=== PATIENT | female | born 1930 | race Caucasian/White ===

== ENCOUNTER → 2016-10-08 | Outpatient (CLI) | payer MEDICARE ==
[~2016-10-08] MED LIST: AMIODARONE 200200 MG PO; ASPIRIN 81MG TA81 MG PO; B-12500 MC1 PO; BACTRIM DS 8001 TA1 PO; BRILINTA90 MG PO; CEFTRIAXONE 1 GM1 GM IV; COLCHICINE0.6 M4 PO; D-20001 TAB PO; FUROSEMIDE 20MG20 MG PO; GABAPENTIN100 M1 PO; HYDRALAZINE HCL25 M1 PO; LISINOPRIL20 MG PO; METOPROLOL TAR100 MG PO; RISPERIDONE0.5 M2 PO
[2016-10-08 13:32] LABS: LYMPH # 0.9 K/mm3 (0.7-4.5); LYMPH % 11.5 % (10-50.0)
[2016-10-08 14:28] LABS: BUN 34 mg/dL (7-18); FREE THYROXIN INDEX 8.3 ug/dl (5.93-13.13)
[2016-10-08 14:33] LABS: GFR (ESTIMATED) 39 ML/MIN (59-)
== END ==
LOC: CARL-LAB 11:30
PROVIDERS: Internal Medicine Adolescent Medicine
DX: F51.01 Primary insomnia (principal); I25.10 Atherosclerotic heart disease of native coronary artery without angina pectoris; I10 Essential (primary) hypertension

== ENCOUNTER 2016-10-10 12:06 | Inpatient (IN) | payer MEDICARE ==
[~2016-10-10] VITALS: Ht 149.9 cm; Wt 49.0 kg
[~2016-10-10 12:06] MED LIST changes: -CEFTRIAXONE 1 GM1 GM IV; -RISPERIDONE0.5 M2 PO
[2016-10-10 14:49] VITALS: BP 146/93
[2016-10-10 15:12] VITALS: BP 146/93
--- NOTE | 2016-10-10 15:56 | RADIOLOGY REPORT PS360 ---
CHEST-PORTABLE HISTORY: Amiodarone therapy, history of pacemaker ms changes ORDERING PHYSICIAN: Meliton Camejo MD PATIENT AGE: 86 years COMPARISON: 10/01/2016 FINDINGS: Mild cardiomegaly without failure. Cardiac pacemaker device is in good position. Hiatal hernia. No lobar consolidation or collapse. No acute bony anomalies. IMPRESSION: As above, no acute finding.
--- NOTE | 2016-10-10 17:19 | RADIOLOGY REPORT PS360 ---
CT HEAD W/O CONTRAST HISTORY: Confusion, altered mental status MS CHANGES ORDERING PHYSICIAN: Meliton Camejo MD PATIENT AGE: 86 years COMPARISON: 09/30/2016 TECHNIQUE: Axial images obtained without contrast. Brain and bone windows reviewed. FINDINGS: No midline shift, mass effect, intracranial hemorrhage, hydrocephalus, or extra-axial fluid collection is evident. There is generalized atrophy with hypoattenuation in the periventricular and subcortical region consistent with microangiopathic gliotic change. 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 No acute intracranial hemorrhage. No significant change The calvarium has an unremarkable appearance. No mastoid effusion. Moderate mucosal thickening sphenoid sinus. IMPRESSION: 1. No change with no intracranial pathology. 2.. Atrophy with chronic ischemic change. 3. Sphenoid sinus disease
[2016-10-10 20:00] VITALS: BP 128/59
--- NOTE | 2016-10-10 21:58 | HISTORY AND PHYSICAL REPORT ---
Demographics: Admit date: 10/10/16 Chief complaint: mental status change/confusion PRIMARY DIAGNOSIS: UTI- FAILED OUTPATIENT Allergies: Coded Allergies: erythromycin base (09/30/16) History of present illness: History of present illness: 86-year-old white female with recent hospitalization for significant orthopnea/ syncope episodes, turned out to have coronary atherosclerosis and received stent. Also was found to have urinary tract infection. Sent home on medications for [id number] anticoagulation therapy. Unfortunately over the past couple of days she's had increasing weakness, problems with confusion and accelerated dementia. Family called me today, readmitted to hospital for IV therapy for failed UTI outpatient therapy and hypokalemia. Past medical history: Family HX Diabetes No CAD No Hypertension Yes Hyperlipidemia No Cancer Yes TB No Immunization HX DT/Tetanus < 1 Year Ago Flu 2015-FSN Pneumonia Received In Past TB Test in last year No General CAD? No Angina: Yes CA: No Hypertension? Yes Hyperlipidemia? Yes CHF? No DVT? No PE? No COPD? No Asthma? No Anemia? No GERD? No Gastric ulcers? No GI Bleed? No Hernia? Yes Thyroid Problems? No Hypothyroidism? No CVA? No Seizures? No Diabetes? No Renal Insuffiency? No UTI? Yes Stones? No BPH? No GB Disease: No Nephritic Syndrome? No Asplenia? No Hepatitis? No Sickle Cell Disease? No Arthritis? No Migraines? No Cataracts? Yes Glaucoma? No MRSA? No HIV? No TB? No Anxiety? No Depression? No Cancer? No More? 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 No Patien't marital status is Patient's support system is excellent Review of systems: Constitutional malaise, weakness. No: fever. Respiratory No: no symptoms reported. Cardiovascular No edema, No palpitations, No syncope Gastrointestinal/Abdominal poor appetite, poor fluid intake Genitourinary see HPI. Musculoskeletal joint swelling. Neurological Yes: weakness. Exam: Lab data for last 24 hours: Laboratory Tests 10/10/16 1520: Magnesium 1.8 10/10/16 1520: Sodium 145, Potassium 2.9 *L, Chloride 105, Carbon Dioxide 33 H, BUN 26 H, Creatinine 1.1 H, Estimated Creat Clear 27 L, Estimated GFR (MDRD) 47 L, Glucose 108 H, Calcium 9.4, Total Bilirubin 1.0, AST 24, ALT 30, Alkaline Phosphatase 67, Total Protein 7.2, Albumin 3.6, Globulin 3.6 H, Albumin/ Globulin Ratio 1.0 L Admission vital signs: 1ST Vital Signs Result Date Time Pulse Ox 93 10/10 1449 O2 Delivery ROOM AIR 10/10 1449 B/P 146/93 10/10 1449 Temp 97.4 10/10 1449 Pulse 72 10/10 1449 Resp 18 10/10 1449 Exam General appearance: alert Eyes: anicteric Neck: non-tender, no JVD Cardiovascular: no JVD, normal sinus rhythm Respiratory: clear to auscultation ABD: soft, no tenderness Extremities: full range of motion, normal capillary refill (but very weak) Skin: lesions (brusinng from cath, IV) Additional information: The patient is pleasant, disoriented, only oriented to person, does know she is in the hospital. Plan: Problem List 1. UTI (urinary tract infection) 2. Hypokalemia 3. Coronary atherosclerosis 4. Mental status change Plan: plan will be to admit to hospital, IV antibiotics, replace potassium, physical therapy evaluation. at [id number]
[2016-10-11] VITALS (8 sets, daily range): BP systolic 102–160; BP diastolic 51–87
[2016-10-11 06:37] LABS: LYMPH % 10.4 % (10-50.0)
[2016-10-11 06:49] LABS: HEMOGLOBIN 12.4 g/dL (12.2-16.2)
--- NOTE | 2016-10-11 07:01 | PHARMACY CLINIC NOTE ---
Patient Demographics Patient Demographics Admission date: 10/10/16 Date: 10/11/16 Time: 0701 Allergies Coded Allergies: erythromycin base (09/30/16) HEIGHT- FT: 4 IN: 11.00 K.465 VTE General Information Labs: Laboratory Tests 10/11 0610 Hematology Hgb (12.2 - 16.2 g/dL) 12.4 Hct (37.0 - 47.0 %) 37.5 Plt Count (142 - 424 K/mm3) 200 Disclaimer The following section includes nursing documentation that has been pulled in for pharmacy review. Patient's VTE score: 3 Patient's VTE Risk: LOW RISK Clinical trial participant? No VTE prophylaxis [id number] VTE prophylaxis ordered? Yes Type of prophylaxis/treatment: GABE at 0701
--- NOTE | 2016-10-11 09:12 | ACUTE CARE PROGRESS NOTE (QUA) ---
Progress Notes Subjective Date 10/11/16 Time 0906 Note Alert and mildly disoriented. Did well with low-dose ativan. VS noted. Objective Findings Last VS-Temp:98.7 B/P:154/76 Pulse:81 Resp:16 SaO2:93 ROOM AIR Last weight lbs:102 oz:7 K.465 Method:Bed Scales Exam General appearance: alert Eyes: anicteric Respiratory: clear to auscultation ABD: soft Musculoskeletal: unchanged. Check MRI and dopplers. High sodium noted. Change IVF. PT.OT eval. Assessment/Plan Problem List 1. UTI (urinary tract infection) 2. Hypokalemia 3. Coronary atherosclerosis 4. Mental status change This inpt stay is expected to cross 2 MNs from start of care Yes at 0911
--- NOTE | 2016-10-11 16:00 | RADIOLOGY REPORT PS360 ---
CHEST PORTABLE-PICC PLACEMENT CLINICAL INDICATION: PICC LINE INSERTION ORDERING PHYSICIAN: Meliton Camejo MD PATIENT AGE: 86 years COMPARISON: 10/10/2016 FINDINGS: Left upper extremity PICC line has been inserted. The tip is difficult to visualize due to overlying RV pacemaker leads but is felt to be in the SVC. 2 images are submitted 1 which is somewhat rotated to try to throw the catheter away from the RV leads. Lungs are clear. Hiatal hernia noted. Mild cardiomegaly. IMPRESSION: PICC line tip in region of SVC
--- NOTE | 2016-10-11 16:00 | RADIOLOGY REPORT PS360 ---
CHEST PORTABLE-PICC PLACEMENT CLINICAL INDICATION: PICC LINE INSERTION ORDERING PHYSICIAN: Meliton aCmejo MD PATIENT AGE: 86 years COMPARISON: 10/10/2016 FINDINGS: Left upper extremity PICC line has been inserted. The tip is difficult to visualize due to overlying RV pacemaker leads but is felt to be in the SVC. 2 images are submitted 1 which is somewhat rotated to try to throw the catheter away from the RV leads. Lungs are clear. Hiatal hernia noted. Mild cardiomegaly. IMPRESSION: PICC line tip in region of SVC
--- NOTE | 2016-10-11 16:58 | RADIOLOGY REPORT PS360 ---
CTA-HEAD CLINICAL INDICATION: CONFUSION, MENTAL STATUS CHANGE ORDERING PHYSICIAN: Meliton Camejo MD PATIENT AGE: 86 years TECHNIQUE: CT angiogram performed following the intravenous administration of 100 mL's of Isovue-370. Axial sagittal and coronal reformatted images are reviewed COMPARISON: None FINDINGS: Mild atheromatous changes involve the intracranial portion of the carotid arteries. No major occlusive process apparent. The vertebrals, basilar, and posterior cerebral 7 unremarkable appearance. No aneurysm or arteriovenous malformation evident. No evidence of sagittal sinus thrombosis. There is some minimal fusiform dilatation of the cavernous portion of the right ICA atheromatous in nature. Incidental note is made of a 15 mm area of decreased density involving the left frontoparietal junction may be due to a hemangioma. There is mild thickening of the right frontal bone nonspecific. Mucosal thickening involves the sphenoid sinus. There is generalized atrophy. No enhancing lesion or intra or extra-axial hemorrhage apparent. IMPRESSION: 1. Negative CTA of the brain. 2. Mild atheromatous changes of the carotid arteries with minimal dilatation of the cavernous portion of the right ICA. No saccular aneurysms evident. 3. Cerebral atrophy 4. Sphenoid sinus disease
[2016-10-12] VITALS (7 sets, daily range): BP systolic 118–138; BP diastolic 45–86
[2016-10-12 07:16] LABS: HEMOGLOBIN 11.4 g/dL (12.2-16.2); LYMPH # 0.9 K/mm3 (0.7-4.5); LYMPH % 8.7 % (10-50.0)
--- NOTE | 2016-10-12 08:43 | ACUTE CARE PROGRESS NOTE (QUA) ---
Progress Notes Subjective Date 10/12/16 Time 0840 Note She remains pleasant but confused, remains exceedingly weak and continues to have a speech deficit with some slurring as previously noted. We've been able to get a urine from clean catch because of her bili. Lungs are clear, heart rate regular, neurologic exam as noted above. Appear Objective Findings Last VS-Temp:98.0 B/P:133/73 Pulse:71 Resp:18 SaO2:94 ROOM AIR Last weight lbs:102 oz:7 K.465 Method:Bed Scales Assessment/Plan Problem List 1. UTI (urinary tract infection) 2. Hypokalemia 3. Coronary atherosclerosis 4. Mental status change 5. Suspected cerebrovascular accident (CVA) Patient condition Stable Plan: continue current care, I believe patient has had a stroke, unfortunately given the limitations of her pacemaker we cannot prove this with MRI scan. CT scans remain negative but her atrophy and other scarring precluded accurate interpretation. Patient will need ongoing PT/OT. Straight catheter for accurate urine culture today. This inpt stay is expected to cross 2 MNs from start of care Yes at 0842
[2016-10-12 12:13] LABS: URINE BILIRUBIN - DIPSTICK NEGATIVE (NEG); URINE BLOOD NEGATIVE (NEG)
[2016-10-12 14:57] LABS: URINE SQUAMOUS CELLS OCC #/hpf (0-5)
[2016-10-13 07:48] VITALS: BP 117/55
--- NOTE | 2016-10-13 08:34 | ACUTE CARE PROGRESS NOTE (QUA) ---
Progress Notes Admission Date: 10/12/16 Subjective Date 10/13/16 Time 0833 Note Patient resting comfortably. No significant mental status changes overnight, continued to be confused. Lungs have rhonchi, heart rate irregular. Abdomen soft Objective Findings Last VS-Temp:98.6 B/P:117/55 Pulse:71 Resp:20 SaO2:94 ROOM AIR Last weight lbs:102 oz:7 K.465 Method:Bed Scales Assessment/Plan Problem List 1. UTI (urinary tract infection) 2. Hypokalemia 3. Coronary atherosclerosis 4. Mental status change 5. Suspected cerebrovascular accident (CVA) Patient condition Stable Plan: continue current care, continue IV antibiotics. alf placement for skilled care over the next week This inpt stay is expected to cross 2 MNs from start of care Yes Antibiotic Stewardship (2) Current Culture Results Microbiology 10/12 0950 URINE CC: Urine Culture - CAN Cancelled: DUPLICATE; CULTURE WAS ORDERED WITH UA 10/12 0950 RANDOM: Urine Culture - RES Infxn that will respond? Yes Right drug,dose,and route? Yes More targeted antbx? No How long atbx needed? 7 at 0834
--- NOTE | 2016-10-13 08:34 | ACUTE CARE PROGRESS NOTE (QUA) ---
Progress Notes Admission Date: 10/12/16 Subjective Date 10/13/16 Time 0833 Note Patient resting comfortably. No significant mental status changes overnight, continued to be confused. Lungs have rhonchi, heart rate irregular. Abdomen soft Objective Findings Last VS-Temp:98.6 B/P:117/55 Pulse:71 Resp:20 SaO2:94 ROOM AIR Last weight lbs:102 oz:7 K.465 Method:Bed Scales Assessment/Plan Problem List 1. UTI (urinary tract infection) 2. Hypokalemia 3. Coronary atherosclerosis 4. Mental status change 5. Suspected cerebrovascular accident (CVA) Patient condition Stable Plan: continue current care, continue IV antibiotics. retirement placement for skilled care over the next week This inpt stay is expected to cross 2 MNs from start of care Yes Antibiotic Stewardship (2) Current Culture Results Microbiology 10/12 0950 URINE CC: Urine Culture - CAN Cancelled: DUPLICATE; CULTURE WAS ORDERED WITH UA 10/12 0950 RANDOM: Urine Culture - RES Infxn that will respond? Yes Right drug,dose,and route? Yes More targeted antbx? No How long atbx needed? 7 at 0834
[2016-10-13 08:45] VITALS: BP 117/55
[2016-10-13 16:10] VITALS: BP 148/77
[2016-10-13 19:20] VITALS: BP 164/98
[2016-10-13 19:45] VITALS: BP 164/98
[2016-10-14] VITALS (7 sets, daily range): BP systolic 95–144; BP diastolic 54–70
--- NOTE | 2016-10-14 07:30 | ACUTE CARE PROGRESS NOTE (QUA) ---
Progress Notes Subjective Date 10/14/16 Time 0729 Note Patient became combative and agitated last night. She refuses to take when necessary Risperdal. She was given intramuscular Haldol for a total of 10 mg and this calmed her down. This morning she denies pain, nausea, shortness of breath. She awakens easily this morning. She's answers questions appropriately. Lungs are clear. Heart has a regular rate and rhythm. Abdomen is soft and nontender. Objective Findings Last VS-Temp:98.3 B/P:95/54 Pulse:75 Resp:18 SaO2:95 ROOM AIR Last weight lbs:102 oz:7 K.465 Method:Bed Scales Assessment/Plan Problem List 1. UTI (urinary tract infection) 2. Hypokalemia 3. Coronary atherosclerosis 4. Mental status change 5. Suspected cerebrovascular accident (CVA) Patient condition Stable Plan: continue current care This inpt stay is expected to cross 2 MNs from start of care Yes Antibiotic Stewardship (2) Infxn that will respond? Yes Right drug,dose,and route? Yes More targeted antbx? No at 0715
[2016-10-15 04:06] VITALS: BP 105/58
[2016-10-15 08:05] VITALS: BP 138/78
[2016-10-15 08:18] VITALS: BP 138/78
--- NOTE | 2016-10-15 08:28 | ACUTE CARE PROGRESS NOTE (QUA) ---
Progress Notes Subjective Date 10/15/16 Time 0827 Note Patient is pleasant talkative. She continues to exhibit some sundowning behaviors but are slightly improved and do respond to atypical antipsychotics. Lungs are clear, heart rate regular, abdomen soft, cranial nerves are symmetric the Objective Findings Last VS-Temp:98 B/P:138/78 Pulse:80 Resp:18 SaO2:93 ROOM AIR Last weight lbs:102 oz:7 K.465 Method:Bed Scales Assessment/Plan Problem List 1. UTI (urinary tract infection) 2. Hypokalemia 3. Coronary atherosclerosis 4. Mental status change 5. Suspected cerebrovascular accident (CVA) Patient condition Stable Plan: initiate discharge plan This inpt stay is expected to cross 2 MNs from start of care Yes Antibiotic Stewardship (2) Infxn that will respond? Yes Right drug,dose,and route? Yes More targeted antbx? No at 0827
--- NOTE | 2016-10-15 08:30 | DISCHARGE SUMMARY STANDARD ---
See Addendum Demographics Admit date: 10/10/16 Discharge date: 10/15/16 History of present illness History of present illness 86-year-old white female with recent hospitalization for significant orthopnea/ syncope episodes, turned out to have coronary atherosclerosis and received stent. Also was found to have urinary tract infection. Sent home on medications for [id number] anticoagulation therapy. Unfortunately over the past couple of days she's had increasing weakness, problems with confusion and accelerated dementia. Family called me today, readmitted to hospital for IV therapy for failed UTI outpatient therapy and hypokalemia. Hospital Course Hospital Course: Patient was admitted, placed on IV antibiotics because of failed treatment for urinary tract infection and tolerated this well. Exhibited significant weakness, significant issues with sundowning and the diagnosis of CVA was made given her previous history of CVA and her sudden decline after vascular intervention. Unfortunately, diagnostic MRIs unable to be done because of the presence of her pacemaker and her recent stent placement. Patient responded fairly well atypical antipsychotic treatment at low dose for her sundowning with self harm activities, and is currently at the lowest effective dose of these agents. Reduction has resulted in increasing symptoms. Patient will be transferred to [facility] today for one more week of intravenous Rocephin at 1 g daily, continue cardiac medications and physical and occupational therapy evaluation. She will also continue to receive occasions for agitation as needed. Discharge diagnoses Problem List 1. UTI (urinary tract infection) 2. Hypokalemia 3. Coronary atherosclerosis 4. Mental status change 5. Suspected cerebrovascular accident (CVA) Medications Medications: Discharge meds are as noted. Follow up Follow up in office in: 2 DAYS with: Gale Murillo APRN at 0848
[2016-10-15] MEDS ORDERED: CEFTRIAXONE 1 GM1 GM IV (08:33)
[2016-10-15] MEDS ORDERED: RISPERIDONE0.5 M2 PO (08:33)
[2016-10-15 10:00] VITALS: BP 138/78
== END 2016-10-15 09:55 | DRG 689 ==
LOC: 2ND 12:06
PROVIDERS: Internal Medicine Adolescent Medicine
DX: N39.0 Urinary tract infection, site not specified (principal); I63.9 Cerebral infarction, unspecified; I44.2 Atrioventricular block, complete; I48.0 Paroxysmal atrial fibrillation; Z95.0 Presence of cardiac pacemaker; Z95.5 Presence of coronary angioplasty implant and graft; I10 Essential (primary) hypertension; E87.6 Hypokalemia; R47.02 Dysphasia
CPT/HCPCS: C1751; G0378; Q9967

== ENCOUNTER → 2017-03-09 | Outpatient (CLI) | payer MEDICARE ==
[~2017-03-09] MED LIST changes: +CEFTRIAXONE 1 GM1 GM IV; +RISPERIDONE0.5 M2 PO
[2017-03-09 11:31] LABS: LYMPH # 1.1 K/mm3 (0.7-4.5); LYMPH % 18.1 % (10-50.0)
[2017-03-09 11:32] LABS: HEMOGLOBIN 13.7 g/dL (12.2-16.2)
[2017-03-09 12:35] LABS: BUN 19 mg/dL (7-18)
[2017-03-09 12:36] LABS: GFR (ESTIMATED) 42 ML/MIN (59-)
== END ==
LOC: LAB 10:58
PROVIDERS: Internal Medicine Adolescent Medicine
DX: I25.10 Atherosclerotic heart disease of native coronary artery without angina pectoris (principal); I10 Essential (primary) hypertension

== ENCOUNTER → 2017-08-28 | Outpatient (CLI) | payer MEDICARE ==
[~2017-08-28] MED LIST changes: +AMIODARONE HYD200 MG PO; +FLUCONAZOLE 10100 MG PO; +FUROSEMIDE 20MG20 MG FT; +K-DUR 2020 MEQ PO; +QUETIAPINE FUMA25 M1 PO; +SENOKOT8.6 MG PO
[2017-08-28 16:03] LABS: BUN 19 mg/dL (7-18)
[2017-08-28 16:04] LABS: GFR (ESTIMATED) 27 ML/MIN (59-)
== END ==
LOC: CARL-LAB 11:19
PROVIDERS: Nurse Practitioner Family
DX: N28.9 Disorder of kidney and ureter, unspecified (principal)